=== PATIENT | male | born 1945 | race Caucasian/White ===

== ENCOUNTER → 2017-11-24 | Day surgery (SDC) | payer OTHER ==
[~2017-11-24] MED LIST: ASA81 MG; COZAAR25 MG PO; LIPITOR20 MG PO; TOPROL XL25 MG PO
== END | disposition home or self-care (01) ==
LOC: CIR.AMB 06:00
DX: N40.1 Benign prostatic hyperplasia with lower urinary tract symptoms (principal)

== ENCOUNTER 2017-12-31 07:28 | Outpatient (CLI) | payer OTHER | END 2017-12-31 08:49 | disposition home or self-care (01) | LOC: NUCLEAR 07:28 | DX: I25.10 Atherosclerotic heart disease of native coronary artery without angina pectoris (principal); I20.0 Unstable angina; E78.2 Mixed hyperlipidemia | CPT/HCPCS: 78452; 93017; A9500 ==

== ENCOUNTER 2020-04-04 08:15 | Inpatient (IN) | payer OTHER ==
[~2020-04-04] VITALS: Ht 180.3 cm; Wt 96.2 kg
[2020-04-04] MEDS ORDERED: CANDESARTAN CILE8 MG PO (10:21)
[2020-04-04] MEDS ORDERED: TOPROL XL100 M1 PO (10:22)
[2020-04-04] MEDS ORDERED: SYNTHROID50 MCG PO (10:22)
[2020-04-04] MEDS ORDERED: CRESTOR5 MG PO (10:22)
[2020-04-14] MEDS ORDERED: FLOVENT HFA12 GM (08:39)
[2020-04-14] MEDS ORDERED: STIOLTO RESPIMAT4 GM (08:39)
[2020-04-14] MEDS ORDERED: SYNTHROID75 MCG (08:40)
[2020-04-14] MEDS ORDERED: GAS RELIEF180 MG (08:40)
[2020-04-14] MEDS ORDERED: METOPROLOL SUCC25 MG (08:43)
[2020-04-15] MEDS ORDERED: PERCOCET 5-3251 EACH PO (11:36)
[2020-04-15] MEDS ORDERED: INTESTINEX680 M1 PO (11:37)
== END 2020-04-15 16:18 | disposition home or self-care (01) | DRG 330 ==
LOC: O/R 04-10 06:00 → SURG 04-10 06:00 → SURH 04-10 07:00 → SURG 04-10 16:56
PROVIDERS: ADMIT Surgery; ATTEND Surgery
PROC: 07BC4ZZ Excision of Pelvis Lymphatic, Percutaneous Endoscopic Approach (ICD-10-PCS; 2020-04-10)
PROC: 3E0F7SF Introduction of Other Gas into Respiratory Tract, Via Natural or Artificial Opening (ICD-10-PCS; 2020-04-10)
PROC: 4A12X4Z Monitoring of Cardiac Electrical Activity, External Approach (ICD-10-PCS; 2020-04-10)
PROC: 0DTF4ZZ Resection of Right Large Intestine, Percutaneous Endoscopic Approach (ICD-10-PCS; principal; 2020-04-10 07:00)
DX: D12.2 Benign neoplasm of ascending colon (principal); N40.1 Benign prostatic hyperplasia with lower urinary tract symptoms; N13.8 Other obstructive and reflux uropathy; J98.11 Atelectasis; R09.02 Hypoxemia; G47.33 Obstructive sleep apnea (adult) (pediatric); E66.9 Obesity, unspecified; Z68.29 Body mass index [BMI] 29.0-29.9, adult; K57.30 Diverticulosis of large intestine without perforation or abscess without bleeding; I11.9 Hypertensive heart disease without heart failure; I25.10 Atherosclerotic heart disease of native coronary artery without angina pectoris; E78.00 Pure hypercholesterolemia, unspecified

== ENCOUNTER 2020-05-01 10:26 | Emergency (ER) | payer OTHER ==
[~2020-05-01] VITALS: Ht 180.3 cm; Wt 96.2 kg
[~2020-05-01 10:26] MED LIST changes: +CANDESARTAN CILE8 MG PO; +CRESTOR5 MG PO; +FLOVENT HFA12 GM; +GAS RELIEF180 MG; +INTESTINEX680 M1 PO; +METOPROLOL SUCC25 MG; +PERCOCET 5-3251 EACH PO; +STIOLTO RESPIMAT4 GM; +SYNTHROID50 MCG PO; +SYNTHROID75 MCG; +TOPROL XL100 M1 PO
[2020-05-01] MEDS ORDERED: ZYRTEC10 M3 PO (13:57)
== END 2020-05-01 14:26 | disposition home or self-care (01) ==
LOC: ER 10:26
DX: R60.0 Localized edema (principal); T50.995A Adverse effect of other drugs, medicaments and biological substances, initial encounter; Y92.89 Other specified places as the place of occurrence of the external cause